=== PATIENT | male | born 2000 | race Caucasian/White ===

== ENCOUNTER 2024-03-10 10:55 | Emergency (ER) | payer MEDICAID ==
[~2024-03-10] VITALS: Ht 175.3 cm; Wt 65.5 kg
[~2024-03-10 10:55] MED LIST: CHLO TP; [UNRECOGNIZED DRUG - REMARK]
[2024-03-10] MEDS: CefTRIAXone 1000mg IM Kit (w/lidocaine diluent) IM ONE (11:45)
[2024-03-10] MEDS ORDERED: CEPH500C2 PO (11:47)
[2024-03-10 11:53] VITALS: BP 108/68; PULSE 74; RESP 16; TEMP 98.6; O2SAT 99
== END 2024-03-10 11:56 | disposition home or self-care (01) ==
LOC: ER 10:56
DX: L03.116 Cellulitis of left lower limb (principal); F41.9 Anxiety disorder, unspecified; F32.A Depression, unspecified; F12.90 Cannabis use, unspecified, uncomplicated; Z79.2 Long term (current) use of antibiotics; Z79.899 Other long term (current) drug therapy
CPT/HCPCS: 96372; 99283; J0696